=== PATIENT | male | born 1965 | race Caucasian/White ===

== ENCOUNTER 2022-07-12 16:24 | Emergency (ER) | payer SELFPAY ==
[2022-07-12] MEDS ORDERED: Sodium Chloride 0.9% 10 ML Syringe FLUSH PRN (16:41)
[2022-07-12] MEDS: Acetaminophen 500 MG Tab PO ONE (17:04)
[2022-07-12] MEDS: fentaNYL 50 MCG/ML SDV IVPUSH ONE (17:06)
[2022-07-12 17:38] VITALS: BP 158/102; PULSE 93
== END 2022-07-12 17:29 | disposition home or self-care (01) ==
LOC: LL.ED 16:24
DX: S22.32XA Fracture of one rib, left side, initial encounter for closed fracture (principal); W00.9XXA Unspecified fall due to ice and snow, initial encounter
CPT/HCPCS: 71101-LT; 73070-LT; 99283; A9270-GY